=== PATIENT | female | born 1950 | race Caucasian/White ===

== ENCOUNTER 2020-07-26 01:09 | Inpatient (IN) | payer MEDICARE, OTHER ==
[2020-07-26] VITALS (10 sets, daily range): BP systolic 127–171; BP diastolic 57–85
[~2020-07-26] VITALS: Ht 157.4 cm; Wt 105.8 kg
[2020-07-26] MEDS ORDERED: ACETAMINOPHEN 500 MG TAB (TYLENOL) PO PRN (03:30)
[2020-07-26 07:46] LABS: BASOPHILS % (AUTO) 0 % (0-10); EOSINOPHILS % (AUTO) 0 % (0-10); HEMATOCRIT 42 % (35-52); HEMOGLOBIN 13.9 g/dL (11.5-16.0); LYMPHOCYTES # (AUTO) 1.4 10^3/uL (1.0-4.0); LYMPHOCYTES % (AUTO) 30 % (12-44); MEAN CORPUSCULAR HEMOGLOBIN 30 pg (25-34); MEAN CORPUSCULAR HGB CONC 34 g/dL (32-36); MEAN CORPUSCULAR VOLUME 88 fL (80-99); MEAN PLATELET VOLUME 10.7 fL (9.0-12.2); MONOCYTES # (AUTO) 0.3 10^3/uL (0.0-1.0); MONOCYTES % (AUTO) 6 % (0-12); NEUTROPHILS # (AUTO) 2.9 10^3/uL (1.8-7.8); NEUTROPHILS % (AUTO) 63 % (42-75); PLATELET COUNT 150 10^3/uL (130-400); WHITE BLOOD COUNT 4.7 10^3/uL (4.3-11.0)
[2020-07-26 08:08] LABS: ALANINE AMINOTRANSFERASE 30 U/L (0-55); ALBUMIN 3.4 GM/DL (3.2-4.5); ALKALINE PHOSPHATASE 72 U/L (40-136); BILIRUBIN,TOTAL 0.3 MG/DL (0.1-1.0); BUN/CREATININE RATIO 13; CARBON DIOXIDE 29 MMOL/L (21-32); CHLORIDE 102 MMOL/L (98-107); CREATININE SERUM 0.77 MG/DL (0.60-1.30); GFR ESTIMATED > 60; GLUCOSE 108 MG/DL (70-105); POTASSIUM 3.4 MMOL/L (3.6-5.0); SODIUM 140 MMOL/L (135-145); TOTAL PROTEIN 6.4 GM/DL (6.4-8.2)
[2020-07-26] MEDS ORDERED: RT-ALBUTEROL INHALER HFA (VENTOLIN HFA) 18 GM IH PRN (11:00)
[2020-07-26] MEDS ORDERED: TRZ50T PO (11:23)
[2020-07-26] MEDS ORDERED: ASCO-262 PO (11:23)
[2020-07-26] MEDS ORDERED: DILT180C85 PO (11:23)
[2020-07-26] MEDS ORDERED: POTA20TA15 PO (11:23)
[2020-07-26] MEDS ORDERED: HYDR-3817 PO (11:23)
[2020-07-26] MEDS ORDERED: FURO40TA4 PO (11:23)
[2020-07-26] MEDS ORDERED: DULO60CA59 PO (11:23)
[2020-07-26] MEDS ORDERED: APIX5TAB PO (11:23)
[2020-07-26] MEDS ORDERED: MTP25TSR PO (11:23)
[2020-07-26] MEDS ORDERED: ACETAMINOPHEN 325 MG TABLET PO PRN (12:00)
[2020-07-26] MEDS ORDERED: ONDANSETRON 4 MG/2 ML (SDV) Z0FRAN IV PRN (12:00)
[2020-07-26] MEDS ORDERED: NS IV 500 ML 500 ML IV SCH (12:00)
--- NOTE | 2020-07-26 12:22 | History & Physical-Hospitalist ---
REVA BERNARDO MD 07/26/20 1222: History of Present Illness HPI/Chief Complaint Pt is a 70yoCF with a PMH of HTN, a-fib, and depression who presented to outside ER due to shortness of breath, nausea, and vomiting. She was seen in the ER at [facility] on 07/23 when her symptoms of cough and shortness of breath started. She was prescribed oxygen and discharged home. She continued to worsen and returned the to ER last night but found the wait at the [facility] ER too long and left to be seen at [facility] ER. She was found to be hypoxic on arrival there with sats in the 80s. She was placed on oxygen and they attempted to admit her at [facility] but a covid bed was unavailable so she was transferred here. She reports she has felt very fatigued and had nausea and vomiting. She also is havign diarrhea. She has a cough as well. Her is sick with COVID too. She has not been vaccinated. Her only other complain is her chronic pain and she is requesting her normal hydrocodone. Source: patient Date Seen 07/26/20 Time Seen by a Provider: 12:11 Attending Physician Theodore Fay MD PCP No,Local Physician Referring Physician Date of Admission Jul 26, 2020 at 02:21 Home Medications & Allergies Home Medications Reviewed patient Home Medication Reconciliation performed by pharmacy medication reconciliations county program technician and/or nursing. Patients Allergies have been reviewed. Allergies Allergies Coded Allergies prednisone (Verified Allergy, Severe, Blood pressure elevated, headache, ) codeine (Verified Allergy, Mild, headache, vomiting, 07/26/20) latex (Verified Allergy, Mild, itching, 07/26/20) Past Ngashyd-Ieskgx-Macfor Hx Patient Social History Marrital Status: Tobacco Use?: No Smoking Status: Never a Smoker Smokeless Tobacco Frequency: Never a User Use of E-Cig and/or Vaping dev: No Substance use?: No Alcohol Use?: No Pt feels they are or have been: No Immunizations Up To Date First/Initial COVID19 Vaccinat: Has not had it Tetanus Booster (TDap): More Than 5 Years Hepatitis A: No Hepatitis B: No Current Status status: No status: No Advance Directives: Yes Advance Directive Location: Family to bring in copy Communicates: Verbally Primary Language: Albanian Preferred Spoken Language: Albanian Is interpretation needed?: No Implanted or Applied Medical D: CPAP Past Medical History Atrial Fibrillation, Hypertension Depression Family Medical History Reviewed Nursing Family Hx No Pertinent Family Hx Review of Systems Constitutional: No fever; malaise, weakness EENTM: no symptoms reported Respiratory: cough, dyspnea on exertion, short of breath Cardiovascular: No chest pain, No edema Gastrointestinal: diarrhea, nausea, vomiting Genitourinary: No dysuria; frequency Musculoskeletal: back pain (chronic) Skin: no symptoms reported Psychiatric/Neurological: No Symptoms Reported Physical Exam Physical Exam Vital Signs Vital Signs - First Documented 07/26/20 07/26/20 07/26/20 03:05 03:17 08:09 Temp 36.0 Pulse 94 Resp 18 B/P (MAP) 127/57 (80) Pulse Ox 93 O2 Delivery Nasal Cannula O2 Flow Rate 2.00 FiO2 28 Capillary Refill : Height, Weight, BMI Height: '" Weight: lbs. oz. kg; 42.70 BMI Method: General Appearance: No Apparent Distress, WD/WN HEENT: PERRL/EOMI, Moist Mucous Membranes Neck: Full Range of Motion, Supple Respiratory: Lungs Clear, No Respiratory Distress, Other (on 2lpm NC) Cardiovascular: Regular Rate, Rhythm, No Murmur Gastrointestinal: Normal Bowel Sounds, Non Tender, Soft Extremity: Normal Capillary Refill, No Calf Tenderness, No Pedal Edema Neurologic/Psychiatric: Alert, Oriented x3 Skin: Normal Color, Warm/Dry Results Results/Procedures Labs Laboratory Tests 07/26/20 07:32 07/27/20 05:48 Patient resulted labs reviewed. Assessment/Plan Admission Diagnosis Acute hypoxic respiratory failure Admission Status: Inpatient Order (span 2 midnights) Reason for Inpatient Admission: see below Assessment and Plan Acute hypoxic respiratory failure due to COVID-19 Continue on oxygen, wean as able Discussed natural course of illness and that I anticipate it may get worse before it gets better as she is only 4 days in to symptoms (though ER note reports 6 days to them) Consented to convalescent plasma and Remdesivir Consent to decadron (has tolerated steroids in the past but has occasionally had elevated blood pressures with prednisone and face flushing with a knee injection) discussed the mortality benefit of Decadron on COVID19 patient and she agrees to trying it Pulm consulted, appreciate recs HTN A-fib Continue home meds Has not taken them in a few days due to nausea/vomitng Depression Continue home meds Obesity, BMI 42.7 No acute needs, clinically significant to FELECIA ANGELES MD 07/26/20 1436: Assessment/Plan Admission Diagnosis Reason for Inpatient Admission: unclear if patient has a diagnosis of sepsis: we will chek lactic acid and procal prior to labeling with the sepsis diagnosis REVA BERNARDO MD Jul 26, 2020 12:22 FELECIA HERNANDEZ MD Jul 26, 2020 14:36
--- NOTE | 2020-07-26 12:28 | Pulmonary Consultation ---
History of Present Illness History of Present Illness Date Seen by Provider: Jul 26, 2020 Time Seen by Provider: 12:30 Date of Admission This is a 70 y old lady who presented as a direct admission with CC of SO B/cough/ viral syndrome. Pt was admitted to the 4th floor. As per patient she developed fever, chills, fatigue, almost a week ago. Almost at the same time she developed productive cough with clear sputum; She also had diarrhea; at an out side ED she was diagnosed with COVID and was transferred to [facility]. Pt did not have the COVID vaccine. Regarding the Prednisone allergy: many years ago she was diagnosed with Lyme disease and treated for a long time with steroids; the steroids were abruptly stopped after a prolonged course and that's when she developed HTN and a significant reaction. Allergies and Home Medications Allergies Coded Allergies: prednisone (Verified Allergy, Severe, Blood pressure elevated, headache, 07/26/20) codeine (Verified Allergy, Mild, headache, vomiting, 07/26/20) latex (Verified Allergy, Mild, itching, 07/26/20) Home Medications Apixaban 5 Mg Tablet, 5 MG PO BID, (Reported) Ascorbate Calcium 500 Mg Tablet, 500 MG PO DAILY, (Reported) Diltiazem HCl 180 Mg Cap.er.24h, 360 MG PO DAILY, (Reported) TAKES 2 (180MG) CAPS Duloxetine HCl 60 Mg Capsule.dr, 60 MG PO HS, (Reported) Furosemide 40 Mg Tablet, 40 MG PO DAILY, (Reported) Hydrocodone/Acetaminophen 1 Each Tablet, 1 EA PO Q6H PRN for PAIN-MODERATE (5- 7), (Reported) Metoprolol Succinate 25 Mg Tab.er.24h, 25 MG PO 1200, (Reported) Potassium Chloride 20 Meq Tab.er.prt, 20 MEQ PO DAILY, (Reported) Trazodone HCl 50 Mg Tablet, 200 MG PO HS, (Reported) TAKES 4 (50MG) TABS Past Medical/Social/Family Hx Patient Social History Marrital Status: Tobacco Use?: No Smoking Status: Never a Smoker Smokeless Tobacco Frequency: Never a User Use of E-Cig and/or Vaping dev: No Substance use?: No Alcohol Use?: No Pt stated abuse/neglect: No Immunizations Up To Date Influenza Vaccine Up-to-Date: No; Not Current Tetanus Booster (TDap): More Than 5 Years Hepatitis A: No Hepatitis B: No TB Skin Test: None Current Status status: No status: No Advance Directives: Yes Advance Directive Location: Family to bring in copy Communicates: Verbally Primary Language: Kosovan Preferred Spoken Language: Kosovan Is interpretation needed?: No Implanted or Applied Medical D: CPAP Past Medical History HTN, A fib SELMA last PSG 2 years ago CPAP compliant; doesnt know the CPAP pressure; uses a nasal mask Family Medical History Family Hx: distant family with cancer Review of Systems Constitutional: see HPI, chills Respiratory: cough, dyspnea on exertion, phlegm, short of breath All Other Systems Reviewed Negative Unless Noted: Yes Sepsis Event Evaluation Height, Weight, BMI Height: '" Weight: lbs. oz. kg; 42.70 BMI Method: Exam Exam Patient acknowledged, consented, and participated in this virtual visit which was conducted using real time audio/video Vital Signs Date Time Temp Pulse Resp B/P (MAP) Pulse Ox O2 Delivery O2 Flow Rate FiO2 07/26/20 11:07 36.2 92 17 137/70 (92) 91 Nasal Cannula 2.00 07/26/20 09:45 Nasal Cannula 2.00 07/26/20 08:45 91 07/26/20 08:09 36.4 90 90 28 07/26/20 08:00 Nasal Cannula 2.00 07/26/20 07:31 171/85 (113) 07/26/20 07:29 36.4 90 17 90 Nasal Cannula 2.00 07/26/20 03:17 36.0 94 18 127/57 (80) 91 Nasal Cannula 2.00 07/26/20 03:05 93 Nasal Cannula 2.00 I & O 07/26/20 07:00 Intake Total 0 ml Output Total 300 ml Balance -300 ml Height & Weight Height: '" Weight: lbs. oz. kg; 42.70 BMI Method: General Appearance: Obese Respiratory: Rhonci Results Lab Laboratory Tests 07/26/20 07:32 Assessment/Plan Assessment/Plan Acute hypoxemic resp failure in the context of COVID + -we will check an ABG to evaluate level of oxygenation and ventilation -cxray was ordered as well -pt is allergic to prednisone/ attempt dexa: benefits were explained to the patient; she got the first dose wo side effects. -convalescent plasma ordered by PCP -consider CT chest PE protocol to order VTE/PE -BIPAP 12/ night and prn Advance the work up in terms o: procal/ lactic acid case dw PCP dr. Licona medical record reviewed patient visualized via IPAD, examined with EKO Thank you for including us in the care of mrs. Garg FELECIA HERNANDEZ MD Jul 26, 2020 12:28
[2020-07-26] MEDS ORDERED: REMDESIVIR INJ 200 MG in NS (IVPB) 210 ML IV NR (13:00)
[2020-07-26] MEDS: HYDROcodone/APAP 7.5 MG/325 MG (LORTAB, LORCET PLUS) TABLET PO PRN ×2 (13:00→17:25)
--- NOTE | 2020-07-26 13:05 | Diagnostic Imaging Report ---
HISTORY: Pneumonia with hypoxia, COVID positive. COMPARISON: None. TECHNIQUE: Frontal view of the chest. FINDINGS: There are patchy airspace opacities in the lung bases and midlungs bilaterally. No pleural effusion or pneumothorax is seen. The cardiac silhouette is normal in size. Cervical spine fusion hardware is noted. IMPRESSION: 1. Bilateral pulmonary airspace opacities, consistent with the history of pneumonia. Dictated by: Dictated on workstation # [id number]
[2020-07-26] MEDS: dexAMETHasone 6 MG TAB (DECADRON) PO SCH (13:06)
[2020-07-26] MEDS: RT-ALBUTEROL INHALER HFA (VENTOLIN HFA) 18 GM IH SCH ×2 (14:55→21:29)
[2020-07-26 14:58] LABS: ABG BASE EXCESS 1.2 MMOL/L (-2.5-2.5); ABG OXYGEN SATURATION 93 % (94-100); ABG PCO2 37 MMHG (35-45); ABG PH 7.44 (7.37-7.43); ABG PO2 66 MMHG (79-93); ABG TCO2 26.3 MMOL/L (21.0-31.0)
[2020-07-26 15:00] LABS: ALLENS TEST YES-POS; INSPIRED O2 1.5
[2020-07-26 15:01] LABS: PATIENT TEMP 36.2; VENTILATOR NO
--- NOTE | 2020-07-26 19:42 | Diagnostic Imaging Report ---
PROCEDURE: CT angiography of the chest with contrast. TECHNIQUE: Multiple contiguous axial images were obtained through the chest after uneventful bolus administration of intravenous contrast. 3D reconstructed CTA MIP acquisitions were also performed. Auto Exposure Controls were utilized during the CT exam to meet ALARA standards for radiation dose reduction. INDICATION: Covid 19 positive with shortness of breath and cough. COMPARISON: No prior studies are available for comparison. Evaluation of the pulmonary arterial system is without evidence of thromboembolism. No definite filling defects are seen within central, lobar or segmental branches. There is mild prominence of the ascending thoracic aorta measuring 4.6 cm AP diameter. No dissection is identified. Aortic arch and descending thoracic aorta are of normal caliber. There is no pericardial fluid. There is trace left and small right pleural effusion. No axillary lymphadenopathy is detected. No definite mediastinal or hilar lymphadenopathy is detected. Parenchymal evaluation does show patchy groundglass infiltrates bilateral upper lobes as well as bilateral lower lobes consistent with Covid 19 pneumonia. Upper abdomen does demonstrate hepatic steatosis. There is a vague low density in the left lobe of the liver, too small to characterize, measuring 11 mm. IMPRESSION: 1. No evidence of pulmonary embolism or thoracic aortic dissection. 2. Trace left and small right pleural effusion. 3. Patchy bilateral upper and lower lobe groundglass pulmonary infiltrates consistent with the patient's diagnosis of Covid 19 pneumonia. Dictated by: Dictated on workstation # [id number]
[2020-07-26] MEDS ORDERED: IOHEXOL 350 MG/ML 100 ML (OMNIPAQUE 350) VIAL IV ONE (19:45)
[2020-07-26] MEDS ORDERED: HOLD METFORMIN - RECEIVED CONTRAST 20 ML VIAL IV SCH (19:45)
[2020-07-26] MEDS ORDERED: NS 100 ML (IVPB) BAG IV ONE (19:45)
[2020-07-26] MEDS: APIXABAN 5 MG (ELIQUIS) TABLET PO SCH (20:48)
[2020-07-26] MEDS: traZODone 50 MG (DESYREL) TAB PO SCH (20:49)
[2020-07-26] MEDS: DULoxetine 30 MG (CYMBALTA) CAP PO SCH (20:49)
[2020-07-26] MEDS ORDERED: NON-FORMULARY MEDICATION 1 EA EA (Duloxetine HCl 60 MG) PO SCH (21:00)
[2020-07-27 00:05] VITALS: BP 159/81
[2020-07-27] MEDS: RT-ALBUTEROL INHALER HFA (VENTOLIN HFA) 18 GM IH SCH ×4 (02:27→21:10)
[2020-07-27] MEDS: HYDROcodone/APAP 7.5 MG/325 MG (LORTAB, LORCET PLUS) TABLET PO PRN ×4 (03:36→21:05)
[2020-07-27 03:37] VITALS: BP 140/78
[2020-07-27] MEDS: guaiFENesin SYRUP 100 MG/5 ML 10 ML (ROBITUSSIN SF) PO PRN ×4 (03:41→21:02)
[2020-07-27 06:26] LABS: HEMATOCRIT 40 % (35-52); HEMOGLOBIN 13.4 g/dL (11.5-16.0); MEAN CORPUSCULAR HEMOGLOBIN 30 pg (25-34); MEAN CORPUSCULAR HGB CONC 34 g/dL (32-36); MEAN CORPUSCULAR VOLUME 88 fL (80-99); MEAN PLATELET VOLUME 10.6 fL (9.0-12.2); PLATELET COUNT 174 10^3/uL (130-400); WHITE BLOOD COUNT 3.6 10^3/uL (4.3-11.0)
[2020-07-27 06:46] LABS: CHLORIDE 103 MMOL/L (98-107); POTASSIUM 3.6 MMOL/L (3.6-5.0); SODIUM 141 MMOL/L (135-145)
[2020-07-27 06:47] LABS: CALCIUM 8.5 MG/DL (8.5-10.1)
[2020-07-27 06:48] LABS: GLUCOSE 147 MG/DL (70-105)
[2020-07-27 06:49] LABS: CARBON DIOXIDE 26 MMOL/L (21-32)
[2020-07-27 06:51] LABS: CREATININE SERUM 0.77 MG/DL (0.60-1.30); GFR ESTIMATED > 60
[2020-07-27 06:52] LABS: BUN/CREATININE RATIO 16
[2020-07-27 07:43] VITALS: BP 146/71
[2020-07-27] MEDS ORDERED: NON-FORMULARY MEDICATION 1 EA EA (Ascorbate Calcium (Vitamin C) 500 MG) PO SCH (09:00)
[2020-07-27] MEDS: FUROSEMIDE 40 MG (LASIX) TAB PO SCH (09:28)
[2020-07-27] MEDS: dexAMETHasone 6 MG TAB (DECADRON) PO SCH (09:28)
[2020-07-27] MEDS: APIXABAN 5 MG (ELIQUIS) TABLET PO SCH ×2 (09:29→21:02)
[2020-07-27] MEDS: ASCORBIC ACID (VIT C) 500 MG TABLET PO SCH (09:29)
[2020-07-27] MEDS: KCL 20 MEQ TAB (K-DUR) PO SCH (09:29)
--- NOTE | 2020-07-27 09:58 | Pulmonary Progress Note ---
Subjective Date Seen by a Provider: Jul 27, 2020 Time Seen by a Provider: 09:40 Subjective/Events-last exam Still has cough and diarhhea; occ cough present; didnt use the bipap since the full face mask ( only available) was not comfortable for her. Review of Systems General: Fatigue Pulmonary: Cough Gastrointestinal: Diarrhea Sepsis Event Evaluation Height, Weight, BMI Height: '" Weight: lbs. oz. kg; 42.70 BMI Method: Focused Exam Lactate Level 07/26/20 14:45: Lactic Acid Level 1.93 Exam Exam Patient acknowledged, consented, and participated in this virtual visit which was conducted using real time audio/video Vital Signs Date Time Temp Pulse Resp B/P (MAP) Pulse Ox O2 Delivery O2 Flow Rate FiO2 07/27/20 09:22 93 Nasal Cannula 4.00 07/27/20 07:43 36.6 78 18 146/71 (96) 92 Nasal Cannula 4.00 07/27/20 07:00 78 07/27/20 03:37 36.3 100 24 140/78 (98) 91 Nasal Cannula 4.00 07/27/20 02:27 92 Nasal Cannula 3.00 07/27/20 01:00 77 07/27/20 00:05 36.3 94 22 159/81 (107) 92 Nasal Cannula 3.00 07/26/20 21:29 94 Nasal Cannula 3.00 07/26/20 20:10 36.5 91 20 138/68 (91) 91 Nasal Cannula 3.00 07/26/20 20:00 91 Nasal Cannula 3.00 07/26/20 19:08 87 07/26/20 17:26 36.1 89 19 134/63 95 Nasal Cannula 3.00 07/26/20 16:00 36.6 92 18 140/67 (91) 92 Nasal Cannula 3.00 07/26/20 15:15 36.6 90 18 140/67 92 Nasal Cannula 3.00 07/26/20 14:57 36.5 88 20 140/80 93 Nasal Cannula 3.00 07/26/20 14:55 92 Nasal Cannula 3.00 07/26/20 12:49 91 07/26/20 11:07 36.2 92 17 137/70 (92) 91 Nasal Cannula 2.00 I & O 07/27/20 07:00 Intake Total 1970 ml Output Total 1550 ml Balance 420 ml Height & Weight Height: '" Weight: lbs. oz. kg; 42.70 BMI Method: General Appearance: Obese HEENT: PERRL/EOMI, Moist Mucous Membranes Neck: Full Range of Motion, Supple Respiratory: Rales, Rhonci Cardiovascular: Regular Rate, Rhythm, No Murmur Extremity: Normal Capillary Refill, No Calf Tenderness, No Pedal Edema Neurologic/Psychiatric: Alert, Oriented x3 Skin: Normal Color, Warm/Dry Results Lab Laboratory Tests 07/26/20 07:32 07/27/20 05:48 Assessment/Plan Assessment/Plan Acute hypoxemic resp failure: -in the context of COVID/ SELMA -resume home CPAP ( to be delivered by fam member/ IC measures to be instituted- bed nurse) -steroids/ remdesivir -o2 eval prior to dc - ct chest reviewed personally: no PE/ bilat infiltrates -dvt prophylaxis. FELECIA HERNANDEZ MD Jul 27, 2020 09:58
[2020-07-27 11:38] VITALS: BP 126/59
--- NOTE | 2020-07-27 12:00 | Progress Note - Hospitalist ---
Subjective HPI/CC On Admission Date Seen by Provider: Jul 27, 2020 Time Seen by Provider: 11:54 Pt is a 70yoCF with a PMH of HTN, a-fib, and depression who presented to outside ER due to shortness of breath, nausea, and vomiting. She was seen in the ER at [facility] on 07/23 when her symptoms of cough and shortness of breath started. She was prescribed oxygen and discharged home. She continued to worsen and returned the to ER last night but found the wait at the [facility] ER too long and left to be seen at [facility] ER. She was found to be hypoxic on arrival there with sats in the 80s. She was placed on oxygen and they attempted to admit her at [facility] but a covid bed was unavailable so she was transferred here. She reports she has felt very fatigued and had nausea and vomiting. She also is havign diarrhea. She has a cough as well. Her is sick with COVID too. She has not been vaccinated. Her only other complain is her chronic pain and she is requesting her normal hydrocodone. Subjective/Events-last exam Pt has had increasing oxygen requirements overnight. Advised proning. She states she is unable. Focused Exam Lactate Level 07/26/20 14:45: Lactic Acid Level 1.93 Objective Exam Vital Signs Vital Signs Date Time Temp Pulse Resp B/P (MAP) Pulse Ox O2 Delivery O2 Flow Rate FiO2 07/27/20 11:38 36.7 85 20 126/59 (81) 94 Nasal Cannula 3.00 07/26/20 08:09 28 Capillary Refill : General Appearance: No Apparent Distress, WD/WN, Obese Respiratory: No Accessory Muscle Use, Rhonci (bilateral), Other (on 3lpm NC) Cardiovascular: Regular Rate, Rhythm, No Murmur Gastrointestinal: Normal Bowel Sounds, Non Tender, Soft Neurologic/Psychiatric: Alert, Oriented x3 Results/Procedures Lab Laboratory Tests 07/27/20 05:48 Patient resulted labs reviewed. Assessment/Plan Assessment and Plan Assess & Plan/Chief Complaint Acute hypoxic respiratory failure due to COVID-19 Continue on oxygen, wean as able- currently on 3lpm NC Continue convalescent plasma and Remdesivir Continue Decadron Pulm consulted, appreciate recs HTN A-fib Continue home meds Resume home meds Depression Continue home meds Obesity, BMI 42.7 No acute needs, clinically significant to COVID DVT ppx: already on anticoagulation REVA BERNARDO MD Jul 27, 2020 12:00
[2020-07-27] MEDS: REMDESIVIR INJ 100 MG in NS (IVPB) 230 ML IV SCH ×2 (13:48→13:50)
[2020-07-27 15:00] VITALS: BP 136/63
[2020-07-27 19:52] VITALS: BP 122/58
[2020-07-27] MEDS: DULoxetine 30 MG (CYMBALTA) CAP PO SCH (21:03)
[2020-07-27] MEDS: traZODone 50 MG (DESYREL) TAB PO SCH (21:04)
[2020-07-28] VITALS: BP 137/65
[2020-07-28] MEDS: RT-ALBUTEROL INHALER HFA (VENTOLIN HFA) 18 GM IH SCH ×4 (03:15→20:22)
[2020-07-28] MEDS: HYDROcodone/APAP 7.5 MG/325 MG (LORTAB, LORCET PLUS) TABLET PO PRN ×3 (04:11→20:48)
[2020-07-28] MEDS: guaiFENesin SYRUP 100 MG/5 ML 10 ML (ROBITUSSIN SF) PO PRN ×2 (04:12→12:27)
[2020-07-28 04:18] VITALS: BP 135/78
[2020-07-28 07:36] VITALS: BP 123/60
[2020-07-28] MEDS: APIXABAN 5 MG (ELIQUIS) TABLET PO SCH ×2 (08:41→20:48)
[2020-07-28] MEDS: dexAMETHasone 6 MG TAB (DECADRON) PO SCH (08:41)
[2020-07-28] MEDS: KCL 20 MEQ TAB (K-DUR) PO SCH (08:41)
[2020-07-28] MEDS: FUROSEMIDE 40 MG (LASIX) TAB PO SCH (08:41)
[2020-07-28] MEDS: ASCORBIC ACID (VIT C) 500 MG TABLET PO SCH (08:41)
--- NOTE | 2020-07-28 09:30 | Pulmonary Progress Note ---
Subjective Date Seen by a Provider: Jul 28, 2020 Time Seen by a Provider: 10:00 Subjective/Events-last exam Pt continues to have productive cough -as per bed side rn and the patient the CPAP was used compliantl-sob improved -diarrhea resolved -overall feels better One episode of hypoxemia 88% resolved with CPAP Sepsis Event Evaluation Height, Weight, BMI Height: '" Weight: lbs. oz. kg; 42.70 BMI Method: Focused Exam Lactate Level 07/26/20 14:45: Lactic Acid Level 1.93 Exam Exam Patient acknowledged, consented, and participated in this virtual visit which was conducted using real time audio/video Vital Signs Date Time Temp Pulse Resp B/P (MAP) Pulse Ox O2 Delivery O2 Flow Rate FiO2 07/28/20 07:36 36.7 74 20 123/60 (81) 91 Nasal Cannula 3.00 07/28/20 07:28 92 NIV CPAP 4.50 07/28/20 07:00 61 07/28/20 04:18 36.1 72 20 135/78 (97) 92 NIV CPAP 4.00 07/28/20 03:15 88 NIV CPAP 3.00 07/28/20 01:00 60 07/28/20 00:00 36.0 71 18 137/65 (89) 93 NIV CPAP 3.00 3.00 07/27/20 21:10 90 Nasal Cannula 3.00 07/27/20 20:00 91 Nasal Cannula 3.00 07/27/20 19:52 36.6 79 20 122/58 (79) 95 Nasal Cannula 3.00 07/27/20 19:00 87 07/27/20 15:30 94 Nasal Cannula 3.00 07/27/20 15:00 36.3 83 18 136/63 (87) 91 Nasal Cannula 3.00 07/27/20 12:22 78 07/27/20 11:38 36.7 85 20 126/59 (81) 94 Nasal Cannula 3.00 l I & O 07/28/20 07:00 Intake Total 1970 ml Output Total 1300 ml Balance 670 ml Height & Weight Height: '" Weight: lbs. oz. kg; 42.70 BMI Method: General Appearance: No Apparent Distress, WD/WN HEENT: PERRL/EOMI, Moist Mucous Membranes Neck: Full Range of Motion, Supple Respiratory: Lungs Clear, No Respiratory Distress, Rhonci, Other (on 2lpm NC) Cardiovascular: Regular Rate, Rhythm, No Murmur Extremity: Normal Capillary Refill, No Calf Tenderness, No Pedal Edema Neurologic/Psychiatric: Alert, Oriented x3 Skin: Normal Color, Warm/Dry Results Lab Laboratory Tests 07/27/20 05:48 Assessment/Plan Assessment/Plan A/P 1. Acute hypoxemic resp failure -multifactorial COVID 19 on steroids/ remdesivir SELMA OIH home CPAP check cxray start salome PT 2. DVT prophylaxis home O2/ pulm rehab OP FELECIA HERNANDEZ MD Jul 28, 2020 09:30
--- NOTE | 2020-07-28 11:41 | Progress Note - Hospitalist ---
Subjective HPI/CC On Admission Date Seen by Provider: Jul 28, 2020 Time Seen by Provider: 11:40 Pt is a 70yoCF with a PMH of HTN, a-fib, and depression who presented to outside ER due to shortness of breath, nausea, and vomiting. She was seen in the ER at [facility] on 07/23 when her symptoms of cough and shortness of breath started. She was prescribed oxygen and discharged home. She continued to worsen and returned the to ER last night but found the wait at the [facility] ER too long and left to be seen at [facility] ER. She was found to be hypoxic on arrival there with sats in the 80s. She was placed on oxygen and they attempted to admit her at [facility] but a covid bed was unavailable so she was transferred here. She reports she has felt very fatigued and had nausea and vomiting. She also is havign diarrhea. She has a cough as well. Her is sick with COVID too. She has not been vaccinated. Her only other complain is her chronic pain and she is requesting her normal hydrocodone. Subjective/Events-last exam Pt reports feeling better today. Breathing easier. On 3plpm. Wore CPAP last night. Focused Exam Lactate Level 07/26/20 14:45: Lactic Acid Level 1.93 Objective Exam Vital Signs Vital Signs Date Time Temp Pulse Resp B/P (MAP) Pulse Ox O2 Delivery O2 Flow Rate FiO2 07/28/20 08:00 91 Nasal Cannula 3.00 07/28/20 07:36 36.7 74 20 123/60 (81) 07/26/20 08:09 28 Capillary Refill : General Appearance: No Apparent Distress, WD/WN Respiratory: Lungs Clear, No Accessory Muscle Use, No Respiratory Distress Cardiovascular: Regular Rate, Rhythm, No Murmur Neurologic/Psychiatric: Alert, Oriented x3, Normal Mood/Affect Results/Procedures Lab Patient resulted labs reviewed. Assessment/Plan Assessment and Plan Assess & Plan/Chief Complaint Acute hypoxic respiratory failure due to COVID-19 Continue on oxygen, wean as able- currently on 3lpm [place] Home oxygen study ordered Continue convalescent plasma and Remdesivir Continue Decadron Pulm consulted, appreciate recs HTN A-fib Continue home meds Depression Continue home meds Obesity, BMI 42.7 No acute needs, clinically significant to COVID DVT ppx: already on anticoagulation REVA BERNARDO MD Jul 28, 2020 11:41
[2020-07-28 13:00] VITALS: BP 118/56
--- NOTE | 2020-07-28 15:08 | Diagnostic Imaging Report ---
INDICATION: Covid-19 positive pneumonia. TIME OF EXAM: 2:24 PM Correlation is made with prior chest radiograph from 07/26/2020. FINDINGS: Heart size is stable. There is some residual patchy infiltrate right mid lung and right lung base. Left lung appears to be fairly clear. No effusion or pneumothorax is identified. Postoperative changes lower cervical spine noted. IMPRESSION: Patchy pneumonia right side upper and lower lobes. Dictated by: Dictated on workstation # [id number]
[2020-07-28] MEDS: REMDESIVIR INJ 100 MG in NS (IVPB) 230 ML IV SCH (15:55)
[2020-07-28 16:50] VITALS: BP 133/61
[2020-07-28] MEDS: DULoxetine 30 MG (CYMBALTA) CAP PO SCH (20:48)
[2020-07-28] MEDS: traZODone 50 MG (DESYREL) TAB PO SCH (20:49)
[2020-07-28 20:55] VITALS: BP 136/63
[2020-07-29] VITALS (7 sets, daily range): BP systolic 123–167; BP diastolic 60–85
[2020-07-29] MEDS: RT-ALBUTEROL INHALER HFA (VENTOLIN HFA) 18 GM IH SCH ×4 (03:29→20:07)
[2020-07-29] MEDS: HYDROcodone/APAP 7.5 MG/325 MG (LORTAB, LORCET PLUS) TABLET PO PRN ×3 (05:17→20:53)
[2020-07-29] MEDS: dexAMETHasone 6 MG TAB (DECADRON) PO SCH (08:34)
[2020-07-29] MEDS: ASCORBIC ACID (VIT C) 500 MG TABLET PO SCH (08:35)
[2020-07-29] MEDS: KCL 20 MEQ TAB (K-DUR) PO SCH (08:35)
[2020-07-29] MEDS: FUROSEMIDE 40 MG (LASIX) TAB PO SCH (08:35)
[2020-07-29] MEDS: APIXABAN 5 MG (ELIQUIS) TABLET PO SCH ×2 (08:35→20:53)
--- NOTE | 2020-07-29 08:59 | Pulmonary Progress Note ---
Subjective Date Seen by a Provider: Jul 29, 2020 Time Seen by a Provider: 08:30 Subjective/Events-last exam Patient reports cough being persistent. SOB+ but improved with minimal exercise used cpap at night Sepsis Event Evaluation Height, Weight, BMI Height: '" Weight: lbs. oz. kg; 42.70 BMI Method: Focused Exam Lactate Level 07/26/20 14:45: Lactic Acid Level 1.93 Exam Exam Patient acknowledged, consented, and participated in this virtual visit which was conducted using real time audio/video Vital Signs Date Time Temp Pulse Resp B/P (MAP) Pulse Ox O2 Delivery O2 Flow Rate FiO2 07/29/20 08:17 92 Nasal Cannula 4.00 07/29/20 07:17 36.8 71 18 136/85 (102) 91 Nasal Cannula 4.50 07/29/20 07:00 66 07/29/20 04:25 36.4 68 16 156/65 (95) 92 NIV CPAP 4.00 07/29/20 03:32 91 NIV CPAP 4.00 07/29/20 01:00 63 07/29/20 00:00 35.2 69 18 130/64 (86) 91 NIV CPAP 4.00 07/28/20 20:55 36.8 82 16 136/63 (87) 92 NIV CPAP 4.50 07/28/20 20:23 91 Nasal Cannula 4.00 07/28/20 20:00 93 Nasal Cannula 3.00 07/28/20 19:00 81 07/28/20 16:50 36.8 71 22 133/61 (85) 94 Nasal Cannula 4.00 07/28/20 14:59 90 Nasal Cannula 4.00 07/28/20 13:29 61 07/28/20 13:00 36.7 74 20 118/56 (76) 93 Nasal Cannula 3.00 07/28/20 13:00 72 I & O 07/29/20 07:00 Intake Total 1380 ml Output Total 1950 ml Balance -570 ml Height & Weight Height: '" Weight: lbs. oz. kg; 42.70 BMI Method: General Appearance: No Apparent Distress, WD/WN, Obese HEENT: PERRL/EOMI, Moist Mucous Membranes Neck: Full Range of Motion, Supple Respiratory: Lungs Clear, No Accessory Muscle Use, No Respiratory Distress, Rhonci Cardiovascular: Regular Rate, Rhythm, No Murmur Gastrointestinal: non tender Extremity: Normal Capillary Refill, No Calf Tenderness, No Pedal Edema Neurologic/Psychiatric: Alert, Oriented x3, Normal Mood/Affect Skin: Normal Color, Warm/Dry Assessment/Plan Assessment/Plan 1. Acute hypoxemic resp failure in the context of COVID PNA o2 home eval remdesivir/ decadron improved clinically and radiologically 2. SELMA continue CPAP DVT prophylaxis FELECIA HERNANDEZ MD Jul 29, 2020 08:59
--- NOTE | 2020-07-29 12:18 | Progress Note - Hospitalist ---
Subjective HPI/CC On Admission Date Seen by Provider: Jul 29, 2020 Time Seen by Provider: 12:14 Pt is a 70yoCF with a PMH of HTN, a-fib, and depression who presented to outside ER due to shortness of breath, nausea, and vomiting. She was seen in the ER at [facility] on 07/23 when her symptoms of cough and shortness of breath started. She was prescribed oxygen and discharged home. She continued to worsen and returned the to ER last night but found the wait at the [facility] ER too long and left to be seen at [facility] ER. She was found to be hypoxic on arrival there with sats in the 80s. She was placed on oxygen and they attempted to admit her at [facility] but a covid bed was unavailable so she was transferred here. She reports she has felt very fatigued and had nausea and vomiting. She also is havign diarrhea. She has a cough as well. Her is sick with COVID too. She has not been vaccinated. Her only other complain is her chronic pain and she is requesting her normal hydrocodone. Subjective/Events-last exam Pt reports feeling better still today but slightly bumped oxygen requirement. I checked sats in room and she was 92-93% on 4lpm (up from 3lpm yesterday). She does have oxygen at home but is unfamiliar with how to work it. Focused Exam Lactate Level 07/26/20 14:45: Lactic Acid Level 1.93 Objective Exam Vital Signs Vital Signs Date Time Temp Pulse Resp B/P (MAP) Pulse Ox O2 Delivery O2 Flow Rate FiO2 07/29/20 08:17 92 Nasal Cannula 4.00 07/29/20 07:17 36.8 71 18 136/85 (102) 07/26/20 08:09 28 Capillary Refill : General Appearance: No Apparent Distress, Obese Respiratory: Lungs Clear, No Respiratory Distress Cardiovascular: Regular Rate, Rhythm, No Murmur Neurologic/Psychiatric: Alert, Oriented x3 Results/Procedures Lab Patient resulted labs reviewed. Assessment/Plan Assessment and Plan Assess & Plan/Chief Complaint Acute hypoxic respiratory failure due to COVID-19 Continue on oxygen, wean as able- currently on 4lpm GA Home oxygen study ordered s/p convalescent plasma and completed Remdesivir Continue Decadron Pulm consulted, appreciate recs surgical services coordinator consulted to assist with oxygen at home HTN A-fib Continue home meds Depression Continue home meds Obesity, BMI 42.7 No acute needs, clinically significant to COVID DVT ppx: already on anticoagulation REVA BERNARDO MD Jul 29, 2020 12:18
[2020-07-29] MEDS: REMDESIVIR INJ 100 MG in NS (IVPB) 230 ML IV SCH (15:52)
[2020-07-29] MEDS: traZODone 50 MG (DESYREL) TAB PO SCH (20:53)
[2020-07-29] MEDS: DULoxetine 30 MG (CYMBALTA) CAP PO SCH (20:53)
[2020-07-30] MEDS: RT-ALBUTEROL INHALER HFA (VENTOLIN HFA) 18 GM IH SCH ×2 (03:04→08:30)
[2020-07-30 04:12] VITALS: BP 132/61
[2020-07-30 05:47] LABS: HEMATOCRIT 42 % (35-52); MEAN CORPUSCULAR HEMOGLOBIN 30 pg (25-34); MEAN CORPUSCULAR HGB CONC 34 g/dL (32-36); MEAN CORPUSCULAR VOLUME 89 fL (80-99); MEAN PLATELET VOLUME 10.9 fL (9.0-12.2); PLATELET COUNT 244 10^3/uL (130-400); WHITE BLOOD COUNT 5.6 10^3/uL (4.3-11.0)
[2020-07-30 06:06] LABS: CHLORIDE 100 MMOL/L (98-107); POTASSIUM 4.2 MMOL/L (3.6-5.0); SODIUM 141 MMOL/L (135-145)
[2020-07-30 06:07] LABS: CALCIUM 8.9 MG/DL (8.5-10.1)
[2020-07-30 06:08] LABS: GLUCOSE 191 MG/DL (70-105)
[2020-07-30 06:09] LABS: CARBON DIOXIDE 26 MMOL/L (21-32)
[2020-07-30 06:12] LABS: BUN/CREATININE RATIO 32; CREATININE SERUM 0.76 MG/DL (0.60-1.30); GFR ESTIMATED > 60
[2020-07-30] MEDS: HYDROcodone/APAP 7.5 MG/325 MG (LORTAB, LORCET PLUS) TABLET PO PRN (07:25)
[2020-07-30 08:00] VITALS: BP 135/62
[2020-07-30] MEDS: KCL 20 MEQ TAB (K-DUR) PO SCH (09:32)
[2020-07-30] MEDS: ASCORBIC ACID (VIT C) 500 MG TABLET PO SCH (09:33)
[2020-07-30] MEDS: APIXABAN 5 MG (ELIQUIS) TABLET PO SCH (09:33)
[2020-07-30] MEDS: dexAMETHasone 6 MG TAB (DECADRON) PO SCH (09:33)
[2020-07-30] MEDS: FUROSEMIDE 40 MG (LASIX) TAB PO SCH (09:33)
[2020-07-30] MEDS: REMDESIVIR INJ 100 MG in NS (IVPB) 230 ML IV SCH (11:15)
[2020-07-30 11:29] VITALS: BP 137/64
--- NOTE | 2020-07-30 12:10 | Discharge Summary ---
Diagnosis/Chief Complaint Date of Admission Jul 26, 2020 at 02:21 Date of Discharge Discharge Date: Jul 29, 2020 Admission Diagnosis Primary Care No,Local Physician Discharge Summary Discharge Physical Exam Allergies: Coded Allergies: prednisone (Verified Allergy, Severe, Blood pressure elevated, headache, 07/26/20) codeine (Verified Allergy, Mild, headache, vomiting, 07/26/20) latex (Verified Allergy, Mild, itching, 07/26/20) Vitals & I&Os Vital Signs Date Time Temp Pulse Resp B/P (MAP) Pulse Ox O2 Delivery O2 Flow Rate FiO2 07/30/20 11:29 36.3 74 20 137/64 (88) 91 Nasal Cannula 4.00 07/26/20 08:09 28 General Appearance: No Apparent Distress, WD/WN, Obese Respiratory: Lungs Clear, No Respiratory Distress Cardiovascular: No Murmur, Irregularly Irregular Neurologic/Psychiatric: Alert, Oriented x3 Hospital Course Patient was admitted with acute hypoxic respiratory failure due to COVID-19. She was treated with Decadron, convalescent plasma, and Remdesivir. She did well and was stable on 4lpm of oxygen. This was arranged for her discharge home. She was discharged home at her request in stable and improved condition to follow-up with her primary care provider. I did offer to call her on speakerphone to answer any further discharge questions they may have together but she declined. Labs (last 24 hrs) Laboratory Tests 07/30/20 05:22: White Blood Count 5.6, Red Blood Count 4.65, Hemoglobin 14.0, Hematocrit 42, Mean Corpuscular Volume 89, Mean Corpuscular Hemoglobin 30, Mean Corpuscular Hemoglobin Concent 34, Red Cell Distribution Width 13.9, Platelet Count 244, Mean Platelet Volume 10.9, Sodium Level 141, Potassium Level 4.2, Chloride Level 100, Carbon Dioxide Level 26, Anion Gap 15H, Blood Urea Nitrogen 24H, Creatinine 0.76, Estimat Glomerular Filtration Rate > 60, BUN/Creatinine Ratio 32, Glucose Level 191H, Calcium Level 8.9, Procalcitonin 0.02 Patient resulted labs reviewed. Pending Labs Laboratory Tests 07/30/20 05:22: White Blood Count 5.6, Red Blood Count 4.65, Hemoglobin 14.0, Hematocrit 42, Mean Corpuscular Volume 89, Mean Corpuscular Hemoglobin 30, Mean Corpuscular Hemoglobin Concent 34, Red Cell Distribution Width 13.9, Platelet Count 244, Mean Platelet Volume 10.9, Sodium Level 141, Potassium Level 4.2, Chloride Level 100, Carbon Dioxide Level 26, Anion Gap 15, Blood Urea Nitrogen 24, Creatinine 0.76, Estimat Glomerular Filtration Rate > 60, BUN/Creatinine Ratio 32, Glucose Level 191, Calcium Level 8.9, Procalcitonin 0.02 Discussion & Recommendations Discharge Planning: >30 minutes discharge planning Discharge Home Medications: Active Scripts Active Reported Vitamin C (Ascorbate Calcium) 500 Mg Tablet 500 Mg PO DAILY Metoprolol Succinate 25 Mg Tab.er.24h 25 Mg PO 1200 Diltiazem 24Hr ER (Diltiazem HCl) 180 Mg Cap.er.24h 360 Mg PO DAILY TAKES 2 (180MG) CAPS Duloxetine HCl 60 Mg Capsule.dr 60 Mg PO HS Furosemide 40 Mg Tablet 40 Mg PO DAILY Potassium Chloride 20 Meq Tab.er.prt 20 Meq PO DAILY Trazodone HCl 50 Mg Tablet 200 Mg PO HS TAKES 4 (50MG) TABS Hydrocodone-Acetamin 7.5-325 (Hydrocodone/Acetaminophen) 1 Each Tablet 1 Ea PO Q6H PRN Eliquis (Apixaban) 5 Mg Tablet 5 Mg PO BID Instructions to patient/family Please see electronic discharge instructions given to patient. REVA BERNARDO MD Jul 30, 2020 12:10
--- NOTE | 2020-07-30 12:22 | Discharge Inst-Simple/Standard ---
Discharge Inst-Standard Patient Instructions/Follow Up Plan of Care/Instructions/FU: Please continue to take your medications as written. Please follow up with your primary care doctor to follow up this hospital stay. Activity as Tolerated: Yes Discharge Diet: No Restrictions Return to The Hospital For: Chest pain, shortness of breath, low oxygen saturations, fever, if you feel you are getting worse. REVA BERNARDO MD Jul 30, 2020 12:22
== END 2020-07-30 14:10 | disposition home or self-care (01) | DRG 177 ==
LOC: 4TH 02:21
PROVIDERS: ADMIT Internal Medicine; ATTEND Internal Medicine
PROC: XW033E5 Introduction of Remdesivir Anti-infective into Peripheral Vein, Percutaneous Approach, New Technology Group 5 (ICD-10-PCS; principal; 2020-07-26)
PROC: XW13325 Transfusion of Convalescent Plasma (Nonautologous) into Peripheral Vein, Percutaneous Approach, New Technology Group 5 (ICD-10-PCS; 2020-07-26)
PROC: 5A09457 Assistance with Respiratory Ventilation, 24-96 Consecutive Hours, Continuous Positive Airway Pressure (ICD-10-PCS; 2020-07-28)
DX: U07.1 COVID-19 (principal); J12.82 Pneumonia due to coronavirus disease 2019; J96.01 Acute respiratory failure with hypoxia; Z68.41 Body mass index [BMI] 40.0-44.9, adult; E66.9 Obesity, unspecified; G47.33 Obstructive sleep apnea (adult) (pediatric); I10 Essential (primary) hypertension; I48.91 Unspecified atrial fibrillation; Z79.01 Long term (current) use of anticoagulants; F32.9 Major depressive disorder, single episode, unspecified; Z73.0 Burn-out; Z88.6 Allergy status to analgesic agent; Z88.8 Allergy status to other drugs, medicaments and biological substances
CPT/HCPCS: 36415; 36600; 71045; 71275; 80048; 80053; 82805; 83605; 84145; 85025; 85027; 86900; 86901; 94640; 94760; 94761